=== PATIENT | male | born 1975 | race Caucasian/White ===

== ENCOUNTER 2020-11-11 16:39 | Emergency (ER) | payer MEDICARE, OTHER ==
[~2020-11-11 16:39] MED LIST: FLONASE 0.05% N16 GM; IBUPROFEN600 MG PO; SUDAFED 60 MG T60 MG PO
[2020-11-11 18:31] LABS: BUN/CREATININE RATIO 13 (0-10)
[2020-11-11 18:32] LABS: HEMOGLOBIN 15.3 gm/dl (14.0-17.5); RED BLOOD COUNT 5.02 M/UL (4.20-5.50); WHITE BLOOD COUNT 6.6 K/UL (4.5-11.0)
[2020-11-11] MEDS ORDERED: HYDROCODON-ACE1 EAC4 PO (19:50)
== END 2020-11-11 20:14 | disposition home or self-care (01) ==
LOC: ER1 16:39
PROVIDERS: Physician Assistant
DX: N13.2 Hydronephrosis with renal and ureteral calculous obstruction (principal); F17.200 Nicotine dependence, unspecified, uncomplicated; Z87.442 Personal history of urinary calculi; Z86.79 Personal history of other diseases of the circulatory system; Z95.1 Presence of aortocoronary bypass graft; Z95.5 Presence of coronary angioplasty implant and graft; Z88.6 Allergy status to analgesic agent; Z88.8 Allergy status to other drugs, medicaments and biological substances
CPT/HCPCS: 80053; 81001; 85025; 96374; 99284; J1885

== ENCOUNTER 2021-01-31 14:04 | Emergency (ER) | payer MEDICARE, OTHER ==
[~2021-01-31 14:04] MED LIST changes: +HYDROCODON-ACE1 EAC4 PO
[2021-01-31 15:45] LABS: HEMOGLOBIN 14.3 gm/dl (14.0-17.5); RED BLOOD COUNT 4.67 M/UL (4.20-5.50); WHITE BLOOD COUNT 7.9 K/UL (4.5-11.0)
[2021-01-31 16:06] LABS: BUN/CREATININE RATIO 16 (0-10)
[2021-01-31] MEDS ORDERED: AUGMENTIN 875-1 EACH PO (17:42)
== END 2021-01-31 18:05 | disposition home or self-care (01) ==
LOC: ER1 14:04
PROVIDERS: Physician Assistant
DX: J32.4 Chronic pansinusitis (principal); Z88.8 Allergy status to other drugs, medicaments and biological substances; Z20.822 Contact with and (suspected) exposure to COVID-19; Z79.899 Other long term (current) drug therapy
CPT/HCPCS: 0240U; 70450; 80053; 83605; 85025; 87040; 96365; 96375; 99284; J0295; J1885

== ENCOUNTER 2021-07-09 18:19 | Emergency (ER) | payer MEDICARE ==
[~2021-07-09 18:19] MED LIST changes: +AUGMENTIN 875-1 EACH PO
[2021-07-09 20:31] LABS: HEMOGLOBIN 15.6 gm/dl (14.0-17.5); RED BLOOD COUNT 5.26 M/UL (4.20-5.50); WHITE BLOOD COUNT 9.6 K/UL (4.5-11.0)
[2021-07-09 21:07] LABS: BUN/CREATININE RATIO 12 (0-10)
[2021-07-10] MEDS ORDERED: ZOFRAN ODT 4 MG4 MG PO (00:38)
[2021-07-10] MEDS ORDERED: FLOMAX0.4 MG PO (00:38)
[2021-07-10] MEDS ORDERED: LODINE CAP 300300 MG PO (00:38)
== END 2021-07-10 00:48 | disposition home or self-care (01) ==
LOC: ER1 18:19
PROVIDERS: Physician Assistant
DX: U07.1 COVID-19 (principal); N20.2 Calculus of kidney with calculus of ureter; F17.200 Nicotine dependence, unspecified, uncomplicated; Z88.8 Allergy status to other drugs, medicaments and biological substances; Z95.1 Presence of aortocoronary bypass graft
CPT/HCPCS: 80053; 81001; 85025; 99284

== ENCOUNTER 2022-03-18 02:43 | Emergency (ER) | payer MEDICARE ==
[~2022-03-18 02:43] MED LIST changes: +FLOMAX0.4 MG PO; +LODINE CAP 300300 MG PO; +ZOFRAN ODT 4 MG4 MG PO
[2022-03-18 03:35] LABS: HEMOGLOBIN 13.8 gm/dl (14.0-17.5); RED BLOOD COUNT 4.51 M/UL (4.20-5.50); WHITE BLOOD COUNT 10.3 K/UL (4.5-11.0)
[2022-03-18 04:23] LABS: BUN/CREATININE RATIO 19 (0-10)
[2022-03-18] MEDS ORDERED: HYDROCODON-ACE1 EAC2 PO (07:30)
[2022-03-18] MEDS ORDERED: ONDANSETRON ODT4 MG SL (07:30)
[2022-03-18] MEDS ORDERED: TORADOL 10 MG T10 MG PO (07:30)
== END 2022-03-18 07:35 | disposition left against medical advice (07) ==
LOC: ER1 02:43
PROVIDERS: Nurse Practitioner
DX: N13.2 Hydronephrosis with renal and ureteral calculous obstruction (principal); K57.90 Diverticulosis of intestine, part unspecified, without perforation or abscess without bleeding; I51.9 Heart disease, unspecified; F17.210 Nicotine dependence, cigarettes, uncomplicated; Z95.1 Presence of aortocoronary bypass graft; Z88.8 Allergy status to other drugs, medicaments and biological substances
CPT/HCPCS: 80053; 81001; 85025; 87086; 96374; 96375; 96376; 99283; J1170; J2270